=== PATIENT | male | born 1960 | race Two or more races ===

== ENCOUNTER 2017-01-16 00:31 | Emergency (ER) | payer BC | END 2017-01-16 01:24 | disposition left against medical advice (07) | LOC: ER 00:31 | DX: Z53.9 Procedure and treatment not carried out, unspecified reason (principal) ==

== ENCOUNTER 2017-01-16 03:44 | Inpatient (IN) | payer SELFPAY ==
[2017-01-16 07:14] LABS: APPEARANCE,URINE SLIGHTLY-CLOUDY; BILIRUBIN,URINE NEGATIVE (NEGATIVE); GLUCOSE, URINE NEGATIVE (NEGATIVE); KETONES,URINE NEGATIVE (NEGATIVE); LEUKOCYTE ESTERASE,URINE NEGATIVE (NEGATIVE); NITRITE,URINE NEGATIVE (NEGATIVE); PROTEIN,URINE NEGATIVE (NEGATIVE); URINE SPECIFIC GRAVITY 1.025; UROBILINOGEN,URINE NEGATIVE mg/dL (<2.0)
[2017-01-16] MEDS ORDERED: MORPHINE SULFATE 10 MG/ML INJ IV ONE ×3 (07:15→09:27)
[2017-01-16] MEDS ORDERED: ONDANSETRON HCL INJ/PF 4 MG/2 ML SDV IV ONE (07:15)
[2017-01-16] MEDS ORDERED: NORMAL SALINE 1000 ML 1,000 ML IV ONE (07:15)
--- NOTE | 2017-01-16 07:16 | ER Document Report ---
ED GI Bleed / Rectal Pain - General Mode of Arrival: Ambulatory Information source: Patient TRAVEL OUTSIDE OF THE [place] IN LAST 30 DAYS: No - HPI Patient complains to provider of: Hemorrhoids Onset: Yesterday Timing/Duration: Sudden Severity of symptoms: Severe Emesis description: Bright red blood Associated symptoms: None Exacerbated by: Sitting <DONNA LEDESMA - Last Filed: 01/16/17 07:45> <MAK LOPEZ - Last Filed: 01/16/17 09:00> - General Chief Complaint: Rectal Pain Stated Complaint: Rectal pain Notes: Patient is a 56-year-old male presenting to the emergency department concerned of rectal pain with small amounts of bright red blood onset yesterday. Patient is in severe pain, and cannot sit down due to the pain. Patient has a history of hemorrhoids and hypertension. (DONNA LEDESMA) - Related Data Allergies/Adverse Reactions: shrimp Allergy (Uncoded 01/16/17 03:49) Home Medications: Current Home Medications Lisinopril/Hydrochlorothiazide [Lisinopril-Hctz 20-12.5 mg Tab] 1 tab PO DAILY 01/16/17 [History] Past Medical History - General Information source: Patient, [facility] Records - Social History Smoking Status: Never Smoker Frequency of alcohol use: None Drug Abuse: None Family History: None. denies: CAD Patient has suicidal ideation: No Patient has homicidal ideation: No - Past Medical History Cardiac Medical History: Reports: Hx Hypertension Renal/ Medical History: Denies: Hx Peritoneal Dialysis Past Surgical History: Reports: Hx Appendectomy - Immunizations Immunizations up to date: Yes Hx Diphtheria, Pertussis, Tetanus Vaccination: Yes - <5 years <DONNA LEDESMA - Last Filed: 01/16/17 07:45> Review of Systems - Review of Systems Constitutional: No symptoms reported EENT: No symptoms reported Cardiovascular: No symptoms reported Respiratory: No symptoms reported Gastrointestinal: See HPI, Rectal bleeding - Severe pain Genitourinary: No symptoms reported Male Genitourinary: No symptoms reported Musculoskeletal: No symptoms reported Skin: No symptoms reported Hematologic/Lymphatic: No symptoms reported Neurological/Psychological: No symptoms reported -: Yes All other systems reviewed and negative <DONNA LEDESMA - Last Filed: 01/16/17 07:45> Physical Exam - General General appearance: Alert, Other - Severe pain - HEENT Head: Normocephalic, Atraumatic Eyes: Normal Pupils: PERRL - Respiratory Respiratory status: No respiratory distress Chest status: Nontender Breath sounds: Normal Chest palpation: Normal - Cardiovascular Rhythm: Regular Heart sounds: Normal auscultation Murmur: No - Abdominal Inspection: Normal Bowel sounds: Normal Tenderness: Nontender - Rectal Hemorrhoids: External - Stage IV prolapsed hemorrhoids - Extremities General upper extremity: Normal inspection, Nontender General lower extremity: Normal inspection, Nontender - Neurological Neuro grossly intact: Yes Cognition: Normal Evon Coma Scale Eye Opening: Spontaneous [place] Coma Scale Verbal: Oriented [place]on Coma Scale Motor: Obeys Commands [place] Coma Scale Total: 15 Speech: Normal - Psychological Associated symptoms: Normal affect, Normal mood - Skin Skin Temperature: Warm Skin Moisture: Dry Skin Color: Normal <DONNA LEDESMA - Last Filed: 01/16/17 07:45> Course - Laboratory Result Diagrams: 01/16/17 06:40 01/16/17 06:40 <DONNA LEDESMA - Last Filed: 01/16/17 07:45> - Laboratory Result Diagrams: 01/16/17 06:40 01/16/17 06:40 - Consults Dr. Boyle Time consulted: 07:45 Consulted provider: will come to ER <MAK LOPEZ - Last Filed: 01/16/17 09:00> - Vital Signs Vital signs: Temp Pulse Resp BP Pulse Ox 97.8 F 93 14 124/74 97 01/16/17 08:24 01/16/17 08:24 01/16/17 08:24 01/16/17 08:24 01/16/17 08:24 - Laboratory Laboratory results interpreted by me: 01/16/17 01/16/17 01/16/17 06:40 06:40 06:40 WBC 11.3 H RBC 3.63 L Hgb 7.2 L Hct 24.0 L MCV 66 L MCH 20.0 L MCHC 30.2 L RDW 21.1 H Seg Neutrophils % 81.2 H Absolute Neutrophils 9.2 H Carbon Dioxide 21 L BUN 24 H Glucose 125 H Total Protein 8.3 H Urine Ascorbic Acid 40 H Crossmatch 01/16/17 08:10 WBC RBC Hgb Hct MCV MCH MCHC RDW Seg Neutrophils % Absolute Neutrophils Carbon Dioxide BUN Glucose Total Protein Urine Ascorbic Acid Crossmatch See Detail Discharge <DONNA LEDESMA - Last Filed: 01/16/17 07:45> - Discharge Admitting Provider: Surgicalist Unit Admitted: Surgical Floor <MAK LOPEZ - Last Filed: 01/16/17 09:00> - Discharge Clinical Impression: Hemorrhoids with prolapsed tissue that cannot be manually replaced, Iron deficiency anemia due to chronic blood loss Condition: Stable Scribe Attestation: 01/16/17 09:00 I personally performed the services described in the documentation, reviewed and edited the documentation which was dictated to the scribe in my presence, and it accurately records my words and actions. (MAK LOPEZ) Scribe Documentation - Scribe Written by Scrtwylae:: Donna Ledesma 01/16/2017 0715 acting as scribe for :: Rocael <DONNA LEDESMA - Last Filed: 01/16/17 07:45>
[2017-01-16 07:43] LABS: ABSOLUTE LYMPHOCYTES (AUTO) 1.6 10^3/uL (0.5-4.7); ABSOLUTE MONOCYTES (AUTO) 0.5 10^3/uL (0.1-1.4); ABSOLUTE NEUT (AUTO) 9.2 10^3/uL (1.7-8.2); BASOPHILS % (AUTO) 0.2 % (0-2); EOSINOPHILS % (AUTO) 0.1 % (0-6); HGB HCT DIFFERENCE -2.4; LYMPHOCYTES % (AUTO) 13.9 % (13-45); MEAN CORPUSCULAR HGB CONC 30.2 g/dL (32.0-36.0); MEAN CORPUSCULAR VOLUME 66 fl (80-97); MONOCYTES % (AUTO) 4.6 % (3-13); RED BLOOD COUNT 3.63 10^6/uL (4.35-5.55); RED CELL DISTRIBUTION WIDTH 21.1 % (11.5-14.0); SEGMENTED NEUTROPHILS % (AUTO) 81.2 % (42-78); WHITE BLOOD COUNT 11.3 10^3/uL (4.0-10.5)
[2017-01-16 07:56] LABS: ALANINE AMINOTRANSFERASE 41 U/L (21-72); ALBUMIN 4.3 g/dL (3.5-5.0); ALKALINE PHOSPHATASE 78 U/L (38-126); ANION GAP 16 (5-19); ASPARTATE AMINO TRANSFERASE 29 U/L (17-59); BILIRUBIN,DIRECT 0.2 mg/dL (0.0-0.4); BILIRUBIN,TOTAL 0.5 mg/dL (0.2-1.3); BLOOD UREA NITROGEN 24 mg/dL (7-20); CALCIUM 9.4 mg/dL (8.4-10.2); CARBON DIOXIDE 21 mmol/L (22-30); CHLORIDE 102 mmol/L (98-107); GLUCOSE 125 mg/dL (75-110); POTASSIUM 4.6 mmol/L (3.6-5.0); SODIUM 139.2 mmol/L (137-145); TOTAL PROTEIN 8.3 g/dL (6.3-8.2)
[2017-01-16 07:59] LABS: HEMOGLOBIN 7.2 g/dL (13.5-17.0)
[2017-01-16] MEDS ORDERED: ROCURONIUM BROMIDE INJ 50 MG/5 ML VIAL IV ONE (08:38)
[2017-01-16] MEDS ORDERED: SUCCINYLCHOLINE CHLORIDE INJ 200 MG/10 ML VIAL ONE (08:38)
[2017-01-16] MEDS ORDERED: NORMAL SALINE 250 ML IV PRN ×2 (09:00→09:48)
[2017-01-16] MEDS ORDERED: BUPIVACAINE INJ/PF LIPOSOME/PF 266 MG/20 ML SDV ONE (11:23)
[2017-01-16] MEDS ORDERED: BUPIVACAINE HCL 0.25% /EPINEPHRINE INJ/PF 30 ML SDV ONE (11:23)
[2017-01-16] MEDS ORDERED: METRONIDAZOLE 500 MG/NS RTU 100 ML IV ONE (12:00)
[2017-01-16] MEDS ORDERED: METRONIDAZOLE 500 MG/NS RTU 0 ML IV ONE (14:17)
[2017-01-16] MEDS ORDERED: FENTANYL CITRATE INJ/PF 100 MCG/2 ML AMPUL ONE (14:58)
[2017-01-16] MEDS ORDERED: MIDAZOLAM 2 MG/2 ML INJ ONE (14:58)
[2017-01-16] MEDS ORDERED: PROPOFOL INJ 200 MG/20 ML VIAL IV ONE (14:59)
[2017-01-16] MEDS ORDERED: LABETALOL HCL INJ 20 MG/4 ML DISP.SYRIN IV ONE (16:11)
[2017-01-16] MEDS ORDERED: MEPERIDINE HCL/PF INJ 25 MG/1 ML DISP.SYRIN IV PRN (16:19)
[2017-01-16] MEDS ORDERED: PROMETHAZINE HCL INJ 25 MG/1 ML VIAL IV PRN (16:19)
[2017-01-16] MEDS ORDERED: LABETALOL HCL INJ 20 MG/4 ML DISP.SYRIN IV PRN (16:19)
[2017-01-16] MEDS ORDERED: ONDANSETRON HCL INJ/PF 4 MG/2 ML SDV IV PRN (16:19)
[2017-01-16] MEDS ORDERED: DIPHENHYDRAMINE HCL 50 MG/ML VIAL IV PRN (16:19)
[2017-01-16] MEDS ORDERED: FENTANYL CITRATE INJ/PF 100 MCG/2 ML AMPUL IV PRN ×3 (16:19)
[2017-01-16] MEDS ORDERED: MORPHINE SULFATE 10 MG/ML INJ IV PRN (16:19)
[2017-01-16] MEDS ORDERED: BUPIVACAINE INJ/PF LIPOSOME/PF 266 MG/20 ML SDV INJ ONE (16:58)
--- NOTE | 2017-01-16 17:10 | PDOC H&P ---
History of Present Illness Admission Date/PCP: 01/16/17 09:46 History of Present Illness: MERNA MILLER is a 56 year old male who presents to the emergency department with a unknown duration of painful and prolapsing hemorrhoids. When I saw the Patient this morning in the emergency department and ordered and sedated. Examination by Dr. Andrea Cote revealed prolapsed, excoriated bleeding and thrombosed hemorrhoids which could not be reduced. Emergency department I attempted to reduce these but was only partially successful. Because of the advanced a grade 4 internal and external hemorrhoids, I recommended admission to the hospital, and interval hemorrhoidectomy with exam under anesthesia. Patient was found to be anemic emergency department so he was advised to blood transfusion preoperatively. Past Medical History Cardiac Medical History: Reports: Hypertension Past Surgical History Past Surgical History: Reports: Appendectomy, Other - Operative repair of left hand traumatic laceration Social History Smoking Status: Never Smoker - Advance Directive Resuscitation Status: Full Code Family History Family History: None. denies: CAD Parental Family History Reviewed: Yes Children Family History Reviewed: Yes Sibling(s) Family History Reviewed.: Yes Medication/Allergy Home Medications: Lisinopril/Hydrochlorothiazide [Zestoretic 20-12.5 mg Tablet] 1 tab PO DAILY 12/30 Allergies/Adverse Reactions: shrimp Allergy (Uncoded 01/16/17 03:49) Review of Systems Constitutional: PRESENT: as per HPI Eyes: PRESENT: as per HPI Ears: PRESENT: as per HPI Nose, Mouth, and Throat: PRESENT: as per HPI Breasts: PRESENT: as per HPI Cardiovascular: PRESENT: as per HPI Respiratory: PRESENT: as per HPI Gastrointestinal: PRESENT: other - Patient has not had a colonoscopy Physical Exam Vital Signs: Temp Pulse Resp BP Pulse Ox 97.6 F 80 14 137/87 H 99 01/16/17 14:10 01/16/17 14:10 01/16/17 14:10 01/16/17 14:10 01/16/17 14:10 Intake & Output 01/15/17 01/16/17 01/17/17 06:59 06:59 06:59 Intake Total 300 Output Total 300 Balance 0 Weight 85.7 kg General appearance: PRESENT: other - Very sleepy by: Appears pale Head exam: PRESENT: normocephalic Eye exam: PRESENT: EOMI Ear exam: PRESENT: normal external ear exam Mouth exam: PRESENT: dry mucosa Neck exam: PRESENT: full ROM Respiratory exam: PRESENT: clear to auscultation uriah Cardiovascular exam: PRESENT: RRR Pulses: PRESENT: normal carotid pulses, normal radial pulses Vascular exam: PRESENT: pallor GI/Abdominal exam: PRESENT: hypoactive bowel sounds Rectal exam: PRESENT: other - Thrombosed edematous and excoriating external hemorrhoids in circumferential fashion. Unable to maintain manual reduction Assessment & Plan - Diagnosis (1) Hemorrhoids with prolapsed tissue that cannot be manually replaced Is this a current diagnosis for this admission?: YesPlan: 1. Fluid hydration, blood transfusion, keep nothing by mouth, and plan for exam under anesthesia, complete hemorrhoidectomy This was explained to the patient and his mother. I explained the operative details of the planned procedure including a thorough discussion of the risks benefits and alternatives. He expresses understanding and agree to proceed. (2) Iron deficiency anemia due to chronic blood loss Is this a current diagnosis for this admission?: YesPlan: 1. Plan 2 unit blood transfusion, her chronic anemia likely due to bleeding hemorrhoids, in anticipation of operative intervention to minimize cardiovascular instability. - Time Time Spent: 50 to 70 Minutes Critical Time spent with patient: 15-24 minutes Anticipated discharge: Home - Inpatient Certification Based on my medical assessment, after consideration of the patient's comorbidities, presenting symptoms, or acuity I expect that the services needed warrant INPATIENT care.: Yes I certify that my determination is in accordance with my understanding of Medicare's requirements for reasonable and necessary INPATIENT services [42 CFR 412.3e].: Yes Medical Necessity: Need For IV Fluids, Need for Pain Control, Need for IV Antibiotics, Need for Surgery
--- NOTE | 2017-01-16 17:20 | Operative Report ---
Operative Report DATE OF SURGERY: 01/16/17 PREOPERATIVE DIAGNOSIS: 1. Grade 4 prolapsed, excoriating, thrombosed unreducible hemorrhoids. 2. Anemia of chronic disease due to blood loss POSTOPERATIVE DIAGNOSIS: Same OPERATION: 1. Examination under anesthesia. 2. 3 compartment hemorrhoidectomy. 3. Extremely difficult modifier SURGEON: SAM CASH ANESTHESIA: GA TISSUE REMOVED OR ALTERED: Hemorrhoids, multiple COMPLICATIONS: None ESTIMATED BLOOD LOSS: 400 mL INTRAOPERATIVE FINDINGS: see Below PROCEDURE: The patient was taken to the preoperative holding area to the main operating room where general anesthesia was induced. There was inserted and the patient drained approximate 400 mL of urine. He is placed in the prone jackknife position Buttocks spread widely with tape secured into position. The findings were significant for external and internal hemorrhoids primarily in the right posterior right anterior and left lateral positions with thrombosis, and mucosal and skin necrosis. Even after inducing general anesthesia, retained reduction of the hemorrhoids was not possible. The external anal canal was prepped and draped with Betadine. We approached the left lateral hemorrhoids first. A large bulky involving a significant amount of redundant skin. I elected to manage this by clamping the hemorrhoids with a series of Elisha clamps and hemostats, thereby amputating the hemorrhoids in a piecemeal fashion ; the pedicles were tied off 0 and 3-0 Vicryl suture. Hemostasis was reasonably acceptable. We now turned our attention to the right posterior hemorrhoidal group which was also very large and edematous. It was amputated in a piecemeal fashion as described above. The hand-held LigaSure device was used in a limited fashion. Finally the right anterior cluster was taken in a more conventional fashion. Using the bullet anoscope, we had excellent exposure to the internal and external hemorrhoid. A suture of 4-0 chromic was placed at the apex of the hemorrhoid and the hemorrhoid was amputated using a 15 blade and Metzenbaum scissors. Portions of thrombosed hemorrhoid were removed electively. The mucosal and anal defect was closed with a 4-0 chromic suture. Of note, throughout the dissection, there was no violation of the external sphincter. We now turned our attention to the right posterior goals, and clean this area primarily by inverting these pedicles, and closing the mucosa overlying. This was performed with a 4-0 chromic suture. We finally turned our attention to the left mid hemorrhoidal group which we amputated at the beginning of the operation. Was cleaned off in a limited fashion again with 2 4-0 chromic sutures. At the conclusion of the operation all gross hemorrhoidal tissue and then removed. Sphincter had been spared throughout the operation. The degree of anal narrowing was felt to be negligible. Long-acting Exparel was injected 40 mL total into the subcutaneous tissue, and a Gelfoam plug placed in the anal canal. Postoperative procedure well. Total time over 1 hour. Hence the extremely difficult modifier particularly with blood loss of approximately 400 mL
[2017-01-16 17:29] LABS: HEMATOCRIT 27.8 % (37.9-51.0); HGB HCT DIFFERENCE -1.4; MEAN CORPUSCULAR HEMOGLOBIN 22.4 pg (27.0-33.4); MEAN CORPUSCULAR HGB CONC 31.7 g/dL (32.0-36.0); RED BLOOD COUNT 3.93 10^6/uL (4.35-5.55); RED CELL DISTRIBUTION WIDTH 22.8 % (11.5-14.0); WHITE BLOOD COUNT 11.6 10^3/uL (4.0-10.5)
[2017-01-16 17:32] LABS: HEMOGLOBIN 8.8 g/dL (13.5-17.0)
[2017-01-16 17:33] LABS: MEAN CORPUSCULAR VOLUME 71 fl (80-97)
[2017-01-16] MEDS: METRONIDAZOLE 500 MG/NS RTU 100 ML IV SCH (19:31)
[2017-01-17] MEDS: MORPHINE SULFATE 10 MG/ML INJ IV PRN ×2 (01:51→05:22)
[2017-01-17] MEDS: METRONIDAZOLE 500 MG/NS RTU 100 ML IV SCH ×3 (01:51→17:20)
[2017-01-17] MEDS: KETOROLAC TROMETHAMINE INJ/PF 30 MG/1 ML SDV IV PRN ×2 (07:00→22:53)
[2017-01-18] MEDS: METRONIDAZOLE 500 MG/NS RTU 100 ML IV SCH ×3 (02:56→17:33)
[2017-01-18] MEDS: DOCUSATE SODIUM 100 MG CAPSULE PO PRN (09:47)
--- NOTE | 2017-01-18 11:32 | PROGRESS NOTE E ---
Progress Note NAME: MERNA MILLER : 1960 AGE: 56Y DATE: 01/18/2017 ROOM: 419 SUBJECTIVE: The patient is still not having bowel movements. He still has a considerable amount of pain that is relieved with parenteral pain medication. OBJECTIVE: His abdomen is soft and nontender. PLAN: Plan is to increase his diet today and continue with ambulation. Will try to switch his parenteral pain medication to p.o. later today and hopefully can be discharged tomorrow. DICTATING PHYSICIAN: CRISTINA JARAMILLO M.D. [id number] PHY#: [id number] ID: [id number] JOB#: [id number] ACCT: [id number] cc: >
[2017-01-18] MEDS: KETOROLAC TROMETHAMINE INJ/PF 30 MG/1 ML SDV IV PRN (14:18)
[2017-01-19] MEDS: METRONIDAZOLE 500 MG/NS RTU 100 ML IV SCH ×2 (02:31→09:05)
[2017-01-19] MEDS: KETOROLAC TROMETHAMINE INJ/PF 30 MG/1 ML SDV IV PRN (07:43)
[2017-01-19] MEDS: DOCUSATE SODIUM 100 MG CAPSULE PO PRN (09:06)
--- NOTE | 2017-01-19 09:40 | PDOC PROGRESS REPORT ---
Subjective Progress Note for:: 01/19/17 Subjective:: Nausea. Develop the severe perianal pain after bowel movement. More comfortable after IV pain medication. Physical Exam Vital Signs: Temp Pulse Resp BP Pulse Ox 98.3 F 80 16 116/74 100 01/19/17 07:09 01/19/17 07:09 01/19/17 07:09 01/19/17 07:09 01/19/17 07:09 Intake & Output 01/18/17 01/19/17 01/20/17 06:59 06:59 06:59 Intake Total 770 1497 Output Total 2960 650 Balance -2190 847 Weight 84.4 kg 84.9 kg General appearance: PRESENT: no acute distress, cooperative Respiratory exam: PRESENT: clear to auscultation uriah Cardiovascular exam: PRESENT: RRR GI/Abdominal exam: PRESENT: other - Soft, nondistended, nontender to palpation. Rectal exam: PRESENT: other - Perianal swelling but no erythema. No active drainage. Results Laboratory Results: 01/16/17 17:25 Assessment & Plan - Diagnosis (1) Hemorrhoids with prolapsed tissue that cannot be manually replaced Is this a current diagnosis for this admission?: YesPlan: Status post hemorrhoidectomy. Patient with the still significant the perianal pain requiring IV pain medication. Not ready to go home yet. Hopefully the pain subsides in the next couple of days.
[2017-01-19] MEDS ORDERED: KETOROLAC TROMETHAMINE 10 MG TABLET PO PRN (09:58)
[2017-01-19] MEDS: DOCUSATE SODIUM 100 MG CAPSULE PO SCH (17:08)
[2017-01-20] MEDS: DOCUSATE SODIUM 100 MG CAPSULE PO SCH (09:23)
[2017-01-20 09:40] VITALS: BP 111/71
--- NOTE | 2017-01-20 10:43 | DISCHARGE SUMMARY E ---
Discharge Summary NAME: MERNA MILLER : 1960 AGE: 56Y ADMITTED: 01/16/2017 DISCHARGED: 01/20/2017 REASON FOR ADMISSION: Prolapsed hemorrhoids. SUMMARY OF HOSPITALIZATION: The patient is a 56-year-old male who presents to the emergency department complaining of obstipation, external hemorrhoids prolapsed, partially thrombosed and excoriated. He was admitted to the Surgical Service for definitive management. The patient was found to be anemic with a hemoglobin of 7.2. He was given 2 units of packed red blood cells, then taken to the operating room where he underwent exam under anesthesia and 3-compartment hemorrhoidectomy. Postoperatively the patient had urinary retention, had Rebolledo catheter inserted. He was slow to go for the first 48 hours then perked up. Rebolledo catheter was removed and he voided uneventfully. Perineum showed evidence of satisfactory postoperative healing. He was started on a stool softener, and he did have a bowel movement on the third postoperative day. By the fourth postoperative day he was felt to be ready for discharge home. FINAL DIAGNOSES: 1. Symptomatic external prolapsed grade 4 hemorrhoids, status post operative excision with primary closure by Dr. Boyle. 2. Anemia of chronic disease, status post 2 unit blood transfusion. RECOMMENDATIONS: The patient will be discharged home in the care of his family, follow up with Dr. Boyle in 1-2 weeks, take multivitamin with iron, and a prescription is provided to him for Percocet for pain p.r.n., as well as Colace to take twice a day. DICTATING PHYSICIAN: SAM BOYLE M.D. [id number] PHY#: [id number] ID: [id number] JOB#: [id number] ACCT: [id number] cc:Bryce ZARAGOZA MD, M.D. MARSHALL B. FRINK, M.D. >
== END 2017-01-20 10:15 | disposition home or self-care (01) | DRG 349 ==
LOC: ER 03:44 → EH 09:43 → UNDOADMIN 09:43 → INTOOBSV 09:46 → EH 09:46 → 4W 13:54 → OBSVTOIN 01-19 12:24
PROVIDERS: ATTEND Surgery
PROC: 30233N1 Transfusion of Nonautologous Red Blood Cells into Peripheral Vein, Percutaneous Approach (ICD-10-PCS; 2017-01-16)
PROC: 06BY0ZC Excision of Hemorrhoidal Plexus, Open Approach (ICD-10-PCS; principal; 2017-01-16 15:15)
DX: K64.3 Fourth degree hemorrhoids (principal); D50.0 Iron deficiency anemia secondary to blood loss (chronic); I10 Essential (primary) hypertension; Z79.899 Other long term (current) drug therapy
CPT/HCPCS: 36415; 36430; 80053; 81001; 85025; 85027; 86850; 86900; 86901; 86920; 88304; 902; 96361; 96374; 96375; 96376; 99283; C9290; G0378; J0330; J1885; J2250; J2270; J2405; J2704; J3010; J3490; J7030; P9016

== ENCOUNTER 2020-04-12 20:04 | Emergency (ER) | payer SELFPAY ==
[2020-04-12] MEDS ORDERED: KETOROLAC TROMETHAMINE INJ/PF 30 MG/1 ML SDV IV ONE (21:13)
--- NOTE | 2020-04-12 21:15 | ER Document Report ---
ED Medical Screen (RME) - General Chief Complaint: Flank Pain Stated Complaint: ABDOMINAL PAIN Time Seen by Provider: 04/12/20 21:11 Mode of Arrival: Medic Information source: Patient Notes: Patient presents with left side pain that radiates around to left side of abdomen. No nausea vomiting or diarrhea. Patient does report chills. No urinary symptoms. Patient has a previous history of kidney stones and is concerned about this today. I have greeted and performed a rapid initial assessment of this patient. A comprehensive ED assessment and evaluation of the patient, analysis of test results and completion of the medical decision making process will be conducted by additional ED providers. TRAVEL OUTSIDE OF THE [place] IN LAST 30 DAYS: No - Related Data Allergies/Adverse Reactions: shrimp Allergy (Unknown, Verified 01/19/17 10:20) Past Medical History - Social History Chew tobacco use (# tins/day): No Frequency of alcohol use: None Drug Abuse: None - Past Medical History Cardiac Medical History: Reports: Hx Hypertension Renal/ Medical History: Denies: Hx Peritoneal Dialysis Past Surgical History: Reports: Hx Appendectomy, Other - Operative repair of left hand traumatic laceration - Immunizations Immunizations up to date: Yes Hx Diphtheria, Pertussis, Tetanus Vaccination: Yes - <5 years Physical Exam - Vital signs Vitals: Temp Pulse Resp BP Pulse Ox 97.6 F 63 20 156/92 H 100 04/12/20 20:43 04/12/20 20:43 04/12/20 20:43 04/12/20 20:43 04/12/20 20:43 - Back Back: CVA tenderness - Left Course - Vital Signs Vital signs: Temp Pulse Resp BP Pulse Ox 97.6 F 63 20 156/92 H 100 04/12/20 20:43 04/12/20 20:43 04/12/20 20:43 04/12/20 20:43 04/12/20 20:43
--- NOTE | 2020-04-12 22:00 | RADIOLOGY REPORT (SQ) ---
EXAM DESCRIPTION: CT ABDOMEN PELVIS WITHOUT IV CONTRAST COMPLETED DATE/TME: 04/12/2020 21:13 CLINICAL HISTORY: 59 years, Male, L flank pain, L side abd pain This exam was performed according to our departmental dose-optimization program which includes automated exposure control, adjustment of the mA and/or kVp according to patient size and/or use of iterative reconstruction technique where applicable. FINDINGS: Visualized lung bases are within normal limits. Liver is moderately diffusely hypodense consistent with fatty infiltration. Spleen, pancreas, gallbladder, adrenal glands are within normal limits. Mild left hydronephrosis. Tiny 2 mm left proximal ureteral calculus is noted. Nonobstructive tiny punctate left mid renal calculus. No right renal calculi. No dilated loops of bowel to suggest obstruction. Mild amount of stool in the colon. Mild scattered colon diverticulosis without CT evidence for acute diverticulitis. No free fluid or free air. The bladder is unremarkable. No abdominal or pelvic lymphadenopathy. Abdominal aorta mildly calcified without aneurysm. IMPRESSION: 2 mm left proximal ureteral calculus with mild left hydronephrosis.
[2020-04-12 23:16] LABS: ABSOLUTE LYMPHOCYTES (AUTO) 0.7 10^3/uL (0.5-4.7); ABSOLUTE MONOCYTES (AUTO) 0.5 10^3/uL (0.1-1.4); ABSOLUTE NEUT (AUTO) 10.4 10^3/uL (1.7-8.2); BASOPHILS % (AUTO) 0.2 % (0-2); EOSINOPHILS % (AUTO) 0.1 % (0-6); HEMATOCRIT 44.9 % (37.9-51.0); HEMOGLOBIN 15.5 g/dL (13.5-17.0); LYMPHOCYTES % (AUTO) 6.4 % (13-45); MEAN CORPUSCULAR HEMOGLOBIN 32.7 pg (27.0-33.4); MEAN CORPUSCULAR HGB CONC 34.4 g/dL (32.0-36.0); MEAN CORPUSCULAR VOLUME 95 fl (80-97); MONOCYTES % (AUTO) 4.2 % (3-13); PLATELET COUNT 244 10^3/uL (150-450); RED BLOOD COUNT 4.73 10^6/uL (4.35-5.55); RED CELL DISTRIBUTION WIDTH 14.3 % (11.5-14.0); SEGMENTED NEUTROPHILS % (AUTO) 89.1 % (42-78); TOTAL CELLS COUNTED % (AUTO) 100 %; WHITE BLOOD COUNT 11.6 10^3/uL (4.0-10.5)
[2020-04-12 23:34] LABS: ALBUMIN 4.6 g/dL (3.5-5.0); ALKALINE PHOSPHATASE 90 U/L (38-126); ANION GAP 10 (5-19); ASPARTATE AMINO TRANSFERASE 30 U/L (17-59); BILIRUBIN,TOTAL 0.8 mg/dL (0.2-1.3); BLOOD UREA NITROGEN 17 mg/dL (7-20); CALCIUM 9.6 mg/dL (8.4-10.2); CARBON DIOXIDE 26 mmol/L (22-30); CHLORIDE 102 mmol/L (98-107); GLUCOSE 148 mg/dL (75-110); POTASSIUM 3.9 mmol/L (3.6-5.0); TOTAL PROTEIN 8.8 g/dL (6.3-8.2)
[2020-04-13 01:46] LABS: APPEARANCE,URINE CLOUDY; BILIRUBIN,URINE NEGATIVE (NEGATIVE); COLOR,URINE DARK YELLOW; GLUCOSE, URINE NEGATIVE (NEGATIVE); KETONES,URINE 20 mg/dL (NEGATIVE); LEUKOCYTE ESTERASE,URINE NEGATIVE (NEGATIVE); NITRITE,URINE NEGATIVE (NEGATIVE); PROTEIN,URINE 100 mg/dL (NEGATIVE); URINE SPECIFIC GRAVITY 1.027
[2020-04-13] MEDS ORDERED: NORMAL SALINE 1000 ML 1,000 ML IV ONE (07:05)
[2020-04-13] MEDS ORDERED: KETOROLAC TROMETHAMINE INJ/PF 30 MG/1 ML SDV IV ONE (07:05)
[2020-04-13] MEDS ORDERED: CEFTRIAXONE 1 GM/D5W RTU 1 GM/50 ML RTUPB IV ONE (07:05)
--- NOTE | 2020-04-13 07:33 | ER Document Report ---
Entered by RACHAEL KONG SCRIBE 04/13/20 0704 Acting as scribe for:MAK LOPEZ MD ED GI/ - General Chief Complaint: Flank Pain Stated Complaint: ABDOMINAL PAIN Time Seen by Provider: 04/12/20 21:11 Primary Care Provider: [facility] [Provider Group] - Follow up as needed Mode of Arrival: Medic Information source: Patient Notes: This 59-year-old male patient presents to the emergency department today with complaints of left-sided flank and abdominal pain with associated dysuria and hematuria. Patient states that he has passed kidney stones in the past and his symptoms today feel similar to kidney stones in the past. Patient states he has noticed that it castañeda when he urinates and has some suprapubic discomfort. Patient denies any fevers or vomiting. TRAVEL OUTSIDE OF THE [place] IN LAST 30 DAYS: No - Related Data Allergies/Adverse Reactions: shrimp Allergy (Unknown, Verified 01/19/17 10:20) Past Medical History - General Information source: Patient - Social History Smoking Status: Never Smoker Cigarette use (# per day): No Chew tobacco use (# tins/day): No Frequency of alcohol use: None Drug Abuse: None Lives with: Family Family History: None Patient has homicidal ideation: No - Past Medical History Cardiac Medical History: Reports: Hx Hypertension Past Surgical History: Reports: Hx Appendectomy, Other - Operative repair of left hand traumatic laceration - Immunizations Immunizations up to date: Yes Hx Diphtheria, Pertussis, Tetanus Vaccination: Yes - <5 years Review of Systems - Review of Systems Constitutional: No symptoms reported EENT: No symptoms reported Cardiovascular: No symptoms reported Respiratory: No symptoms reported Gastrointestinal: No symptoms reported Genitourinary: See HPI, Dysuria, Flank pain, Hematuria, Pain Male Genitourinary: No symptoms reported Musculoskeletal: No symptoms reported Skin: No symptoms reported Hematologic/Lymphatic: No symptoms reported Neurological/Psychological: No symptoms reported -: Yes All other systems reviewed and negative Physical Exam - Vital signs Vitals: Temp Pulse Resp BP Pulse Ox 97.6 F 63 20 156/92 H 100 04/12/20 20:43 04/12/20 20:43 04/12/20 20:43 04/12/20 20:43 04/12/20 20:43 - Notes Notes: Physical Exam: General: Sleeping comfortably, alert after being awoken. HEENT: Normocephalic. Atraumatic. PERRL. Extraocular movements intact. Oropharynx clear. Neck: Supple. Non-tender. Respiratory: No respiratory distress. Clear and equal breath sounds bilaterally. Cardiovascular: Regular rate and rhythm. Abdominal: Lower abdomen and suprapubic tenderness to palpation. No distension. Normal Bowel Sounds. Back: No gross abnormalities. Extremities: Moves all four extremities. Upper extremities: Normal inspection. Normal ROM. Lower extremities: Normal inspection. No edema. Normal ROM. Neurological: Normal cognition. AAOx4. Normal speech. Psychological: Normal affect. Normal Mood. Skin: Warm. Dry. Normal color. Course - Re-evaluation Re-evalutation: 04/13/20 07:48 Urine was concentrated with 75 WBCs and too numerous to count RBCs. Given the dysuria the patient is complaining of, he will be treated with antibiotics and the urine will be cultured. - Vital Signs Vital signs: Temp Pulse Resp BP Pulse Ox 97.9 F 70 16 140/89 H 97 04/13/20 08:02 04/13/20 08:02 04/13/20 08:02 04/13/20 08:02 04/13/20 08:02 - Laboratory Result Diagrams: 04/12/20 22:48 04/12/20 22:48 Laboratory results interpreted by me: 04/12/20 04/12/20 04/13/20 22:48 22:48 01:25 WBC 11.6 H RDW 14.3 H Lymph % (Auto) 6.4 L Absolute Neuts (auto) 10.4 H Seg Neutrophils % 89.1 H Glucose 148 H Total Protein 8.8 H Urine Protein 100 H Urine Ketones 20 H Urine Blood LARGE H Urine Urobilinogen 2.0 H Urine Ascorbic Acid 40 H - Diagnostic Test Radiology reviewed: Image reviewed, Reports reviewed - 2 mm left proximal ureteral calculus with mild left hydronephrosis Discharge - Discharge Clinical Impression: Kidney stone on left side Urinary tract infection Qualifiers: Urinary tract infection type: acute cystitis Hematuria presence: with hematuria Qualified Code(s): N30.01 - Acute cystitis with hematuria Condition: Stable Disposition: HOME, SELF-CARE Additional Instructions: Kidney Stone You are passing or have passed a kidney stone. These stones are usually due to increased calcium or uric acid concentrations in your urine. Stones within the kidney itself are not painful. The pain occurs as the stone leaves the kidney to pass down the long tube, called the ureter, leading to the bladder. If the stone is small, it will usually pass by itself. Most patients can pass the stone at home. You will usually receive medications for pain, nausea or vomiting, and sometimes a medication to assist in passing the kidney stone. However, if the pain is very severe or if vomiting prevents you from taking oral pain medications, you may need to return for further treatment. Drink three or four quarts of fluids per day. You will be given pain medication (if needed) and urine strainers. Strain all your urine to see if the stone passes. If your doctor has asked you to bring the stone in for analysis, return with the stone once it has passed. Return if pain or vomiting become severe, if you develop a high fever, if you are unable to pass your urine, or if other unusual symptoms occur. Urinary Tract Infection Your evaluation indicates that you have a urinary tract infection. This is due to germs growing in the bladder. This is a common problem. This infection usually responds quickly to antibiotics. Your antibiotic should be taken exactly as prescribed. Drink plenty of fluids -- three to four quarts a day. Occasionally, a bladder anesthetic will be prescribed to help stop the feeling of urgency until the antibiotic has a chance to clear the infection. T his may cause your urine to be dark orange. Certain urine infections require a culture. If the doctor obtained a culture, the results will be back in two days. You should call to see if a change in treatment is needed. A repeat urinalysis after you finish treatment is often recommended. The physician will let you know if further testing is required. Call the doctor if you develop fever, chills, flank pain, inability to urinate, or blood in the urine. Take the medications as prescribed for pain and urine infection. Take ibuprofen 600 mg every 8 hours to help reduce the discomfort from the kidney stone. Drink plenty of fluids throughout the day and the evening. Strain your urine. Follow-up with [facility] if not improving. Return to the emergency room if you develop fever or vomiting. RETURN TO THE EMERGENCY ROOM IF ANY NEW OR WORSENING SYMPTOMS. Prescriptions: Ciprofloxacin HCl [Cipro 500 mg Tablet] 500 mg PO BID #14 tablet Oxycodone HCl/Acetaminophen [Percocet 5-325 mg Tablet] 1 tab PO ASDIR PRN #[id number] PRN Reason: Forms: Return to Work Referrals: [facility] [Provider [facility]] - Follow up as needed I personally performed the services described in the documentation, reviewed and edited the documentation which was dictated to the scribe in my presence, and it accurately records my words and actions.
[2020-04-13] MEDS ORDERED: CIPROFLOXACIN HCL 500 MG TABLET PO ONE (07:51)
[2020-04-13 08:03] VITALS: BP 140/89
== END 2020-04-13 08:23 | disposition home or self-care (01) ==
LOC: ER 20:04
DX: N13.2 Hydronephrosis with renal and ureteral calculous obstruction (principal); N30.01 Acute cystitis with hematuria; I10 Essential (primary) hypertension; Z91.013 Allergy to seafood
CPT/HCPCS: 96376; 99284; 96361; 96375; 96365; 36415; 87086; 85025; 80053; 81001; 74176; J1885 ×2; J7030; J0696